=== PATIENT | female | born 1945 | race Caucasian/White ===

== ENCOUNTER 2020-06-16 13:07 | Inpatient (IN) | payer BC, OTHER ==
[~2020-06-16] VITALS: Ht 172.7 cm; Wt 70.4 kg
[2020-06-16 14:01] LABS: Basophils # (auto) 0 10 ^3/uL (0-0.2); Eosinophils # (auto) 0.2 10 ^3/uL (0-0.8); Eosinophils % (auto) 5.7 % (0.0-7.0); Lymphocytes # (auto) 1.3 10 ^3/uL (0.4-5.4); Lymphocytes % (auto) 30.3 % (10.0-50.0); Monocytes # (auto) 0.3 10 ^3/uL (0-1.3); Neutrophils # (auto) 2.4 10 ^3/uL (1.6-8.6); Neutrophils % (auto) 55.9 % (37.0-80.0); White Blood Cell 4.3 10^3/uL (4.4-10.8)
[2020-06-16 14:03] LABS: Basophils % (auto) 0.6 % (0.0-2.0); Hematocrit 37.7 % (36.0-46.0); Hemoglobin 13.2 g/dL (12.2-16.2); Mean Corpuscular Hemoglobin 34.3 pg (28.0-32.0); Mean Corpuscular Hgb Conc. 34.9 g/dL (32.0-36.0); Mean Corpuscular Volume 98.3 fL (80.0-100.0); Monocytes % (auto) 7.5 % (0.0-12.0); Nucleated Red Blood Cells % 0.3 %; Platelet Count (auto) 225 10^3/uL (140-450); Red Blood Cells 3.84 10^6/uL (4.0-5.20); Red Cell Distribution Width 13.3 % (11.8-14.3)
[2020-06-16 14:20] LABS: Alanine Aminotransferase 22 U/L (13-56); Albumin 3.1 g/dL (3.4-5.0); Anion Gap 7 (5-15); Aspartate Aminotransferase 27 U/L (15-37); BUN/Creatinine Ratio 24.2; Blood Alcohol < 3.0 mg/dL (0-5); Blood Urea Nitrogen 15 mg/dL (7-18); Calcium 8.3 mg/dL (8.5-10.1); Carbon Dioxide 26 mmol/L (21-32); Chloride 105 mmol/L (98-107); GFR African American 121 mL/min; GFR Non-African American 100 mL/min; Glucose 80 mg/dL (74-106); Potassium 4.4 mmol/L (3.5-5.1); Sodium 138 mmol/L (136-145)
[2020-06-16 14:25] LABS: Alkaline Phosphatase 99 U/L (45-117); Bilirubin, Total 0.6 mg/dL (0.2-1.0); Total Protein 6.5 g/dL (6.4-8.2)
[2020-06-16 16:20] LABS: Urine Bacteria MOD /hpf (None Seen); Urine Blood Negative /uL (Negative); Urine Budding Yeast FEW /hpf (None Seen); Urine Ca Carbonate Crystal FEW /hpf (None Seen); Urine Specific Gravity 1.008 (1.001-1.035); Urine WBC 22 /hpf (0 - 5)
[2020-06-16 16:32] LABS: Alcohol, Urine < 3.0 mg/dL (0-10); Amphetamine Screen, Urine NEGATIVE (NEGATIVE); Barbiturate Scree,Urine NEGATIVE (NEGATIVE); Benzodiazephine Screen, Urine NEGATIVE (NEGATIVE); Cannabinoid Screen, Urine NEGATIVE (NEGATIVE); Cocaine Screen, Urine NEGATIVE (NEGATIVE); Opiate Scree,Urine NEGATIVE (NEGATIVE); Phencyclidine Screen, Urine NEGATIVE (NEGATIVE)
[2020-06-16] MEDS ORDERED: cefTRIAXone 1GM/50ML D5W 50 ML IV ONE (16:45)
[2020-06-16] MEDS ORDERED: MORPHINE SULF INJ 2 MG/ML SYRINGE 1ML IV PRN ×2 (17:15)
[2020-06-16] MEDS ORDERED: LORazepam 2MG/ML-1ML VIAL IV PRN ×2 (17:15→20:00)
[2020-06-16] MEDS ORDERED: SODIUM CHLORIDE 0.9% 500 ML IV ONE (17:15)
[2020-06-16] MEDS ORDERED: ONDANSETRON HCL 4 MG/2 ML VIAL IV PRN (17:15)
[2020-06-16] MEDS ORDERED: NITROGLYCERIN 0.4 MG SL TAB SL PRN (17:15)
[2020-06-16] MEDS ORDERED: hydrALAZINE HCL 20 MG/ML VL IV PRN (17:15)
[2020-06-16] MEDS ORDERED: LACTULOSE 20Gm/30ML SOLN PO PRN (17:15)
[2020-06-16] MEDS: SODIUM CHLORIDE 0.9% 1,000 ML IV SCH (18:21)
[2020-06-16 20:36] LABS: Cholesterol 183 mg/dL (< 200); Triglycerides 71 mg/dL (< 150)
[2020-06-16 20:38] LABS: HDL Cholesterol 51 mg/dL (40-59); LDL Cholesterol 120 mg/dL (< 100)
[2020-06-16 21:30] VITALS: BP 123/71
[2020-06-16 22:00] VITALS: BP 123/71
[2020-06-17 05:00] VITALS: BP 123/68
[2020-06-17 05:07] LABS: Basophils # (auto) 0 10 ^3/uL (0-0.2); Basophils % (auto) 0.4 % (0.0-2.0); Eosinophils # (auto) 0.3 10 ^3/uL (0-0.8); Eosinophils % (auto) 5.6 % (0.0-7.0); Hematocrit 37.2 % (36.0-46.0); Lymphocytes # (auto) 1.3 10 ^3/uL (0.4-5.4); Lymphocytes % (auto) 27.9 % (10.0-50.0); Mean Corpuscular Volume 97.3 fL (80.0-100.0); Monocytes # (auto) 0.4 10 ^3/uL (0-1.3); Monocytes % (auto) 8.6 % (0.0-12.0); Neutrophils # (auto) 2.7 10 ^3/uL (1.6-8.6); Neutrophils % (auto) 57.5 % (37.0-80.0); Nucleated Red Blood Cells % 0.1 %; Platelet Count (auto) 216 10^3/uL (140-450); Red Blood Cells 3.82 10^6/uL (4.0-5.20); Red Cell Distribution Width 12.6 % (11.8-14.3); White Blood Cell 4.7 10^3/uL (4.4-10.8)
[2020-06-17 05:26] LABS: Albumin 2.8 g/dL (3.4-5.0); Calcium 8.4 mg/dL (8.5-10.1); INR 1.06 (0.9-1.15); Potassium 4.1 mmol/L (3.5-5.1)
[2020-06-17 05:30] LABS: BUN/Creatinine Ratio 28.6; Bilirubin, Total 0.6 mg/dL (0.2-1.0); Total Protein 6.5 g/dL (6.4-8.2)
[2020-06-17 07:45] VITALS: BP 118/71
[2020-06-17] MEDS ORDERED: ASPI-378 PO (07:50)
[2020-06-17 09:00] VITALS: BP 118/71
[2020-06-17] MEDS: SODIUM CHLORIDE 0.9% 1,000 ML IV SCH (09:55)
[2020-06-17] MEDS: ASPirin-EC 81 mg tab PO SCH (09:58)
[2020-06-17] MEDS: ENOXAPARIN SOD 40 MG/0.4 ML SYRINGE SC SCH (09:58)
[2020-06-17] MEDS ORDERED: PANTOPRAZOLE 40 MG/10 ML VIAL INJ IV SCH (10:00)
[2020-06-17] MEDS: cefTRIAXone 1GM/50ML D5W 50 ML IV SCH (10:00)
[2020-06-17 13:00] VITALS: BP 127/68
[2020-06-17 17:00] VITALS: BP 114/67
[2020-06-17 20:00] VITALS: BP 116/66
[2020-06-18] MEDS: SODIUM CHLORIDE 0.9% 1,000 ML IV SCH ×2 (02:35→19:15)
[2020-06-18 05:00] VITALS: BP 103/65
[2020-06-18 07:45] VITALS: BP 115/67
[2020-06-18 09:00] VITALS: BP 115/67
[2020-06-18] MEDS: ENOXAPARIN SOD 40 MG/0.4 ML SYRINGE SC SCH (10:00)
[2020-06-18] MEDS: ASPirin-EC 81 mg tab PO SCH (10:00)
[2020-06-18] MEDS: ESOMEPRAZOLE 40 MG/5ml VIAL INJ IV SCH (10:00)
[2020-06-18] MEDS: cefTRIAXone 1GM/50ML D5W 50 ML IV SCH (10:02)
[2020-06-18 10:40] LABS: Urine Bacteria NONE SEEN /hpf (None Seen); Urine Blood Negative /uL (Negative); Urine Specific Gravity 1.014 (1.001-1.035); Urine WBC <1 /hpf (0 - 5)
[2020-06-18] MEDS ORDERED: MILK OF MAGNESIA 30ML SUSP PO PRN (12:15)
[2020-06-18 13:00] VITALS: BP 103/55
[2020-06-18 17:00] VITALS: BP 114/70
[2020-06-18 22:00] VITALS: BP 109/64
[2020-06-19 05:00] VITALS: BP 134/70
[2020-06-19 06:00] VITALS: BP 111/67
[2020-06-19 08:10] VITALS: BP 111/67
[2020-06-19] MEDS: SODIUM CHLORIDE 0.9% 1,000 ML IV SCH (09:13)
[2020-06-19] MEDS: cefTRIAXone 1GM/50ML D5W 50 ML IV SCH (09:13)
[2020-06-19] MEDS: ASPirin-EC 81 mg tab PO SCH (10:00)
[2020-06-19] MEDS: ESOMEPRAZOLE 40 MG/5ml VIAL INJ IV SCH (10:00)
[2020-06-19] MEDS: ENOXAPARIN SOD 40 MG/0.4 ML SYRINGE SC SCH (10:00)
[2020-06-19 13:00] VITALS: BP 112/70
[2020-06-19 17:00] VITALS: BP 118/71
[2020-06-19 22:00] VITALS: BP 113/59
[2020-06-20 05:00] VITALS: BP 92/53
[2020-06-20] MEDS: SODIUM CHLORIDE 0.9% 1,000 ML IV SCH (05:51)
[2020-06-20] MEDS: cefTRIAXone 1GM/50ML D5W 50 ML IV SCH (08:55)
[2020-06-20] MEDS: ENOXAPARIN SOD 40 MG/0.4 ML SYRINGE SC SCH (09:07)
[2020-06-20] MEDS: ESOMEPRAZOLE 40 MG/5ml VIAL INJ IV SCH (09:07)
[2020-06-20] MEDS: ASPirin-EC 81 mg tab PO SCH (09:07)
[2020-06-20 09:11] VITALS: BP 107/57
[2020-06-20 13:00] VITALS: BP 127/71
[2020-06-20 14:57] VITALS: BP 127/71
== END 2020-06-20 15:43 | disposition home or self-care (01) | DRG 70 ==
LOC: EDSEX 13:07 → EDBD 13:07 → ER 13:07 → TELE 17:13 → TELE-WESTW 21:04
PROVIDERS: ADMIT Family Medicine; ATTEND Family Medicine
DX: G93.41 Metabolic encephalopathy (principal); G82.50 Quadriplegia, unspecified; N39.0 Urinary tract infection, site not specified; I69.951 Hemiplegia and hemiparesis following unspecified cerebrovascular disease affecting right dominant side; Z20.822 Contact with and (suspected) exposure to COVID-19; E86.0 Dehydration; F17.200 Nicotine dependence, unspecified, uncomplicated; Z79.82 Long term (current) use of aspirin
CPT/HCPCS: 36415; 70450; 70551; 71045; 80053; 80061; 80307; 80320; 81001; 83880; 84443; 84484; 85025; 85610; 87086; 87426; 93005; 95819; 96365; 97110; 97530; C9113; G0378; J0696